=== PATIENT | male | born 1960 | race African-American/Black ===

== ENCOUNTER 2017-03-08 08:56 | Inpatient (IN) | payer OTHER ==
[2017-03-07 12:20] VITALS: BMI 27.7
[~2017-03-08] VITALS: Ht 180.3 cm; Wt 104.1 kg
[2017-03-08] VITALS (18 sets, daily range): BP systolic 105–127; BP diastolic 59–83; PULSE 62–88; RESP 11–26; Ht 180.3 cm; Wt 104.1 kg
--- NOTE | 2017-03-08 10:27 | HPN ---
Date/Time of Note Date/Time of Note DATE: 03/08/17 TIME: 10:26 Interval H&P Admission Note Pt. seen H&P reviewed: No system changes ANAI TOPETE PA-C Mar 08, 2017 10:26
[2017-03-08] MEDS ORDERED: ONDANSETRON 4 MG INJ IV PRN ×2 (10:30→12:00)
[2017-03-08] MEDS ORDERED: morphine 2 MG INJ IV PRN (10:30)
[2017-03-08 10:38] LABS: ADD SCAN DIFF NO
[2017-03-08 10:49] LABS: BASOPHILS % 0.5 % (0.0-2.0); EOSINOPHILS # 0.1 10^3/ul (0.0-0.5); EOSINOPHILS % 1.4 % (0.0-7.0); HEMATOCRIT 42.9 % (42.0-52.0); HEMOGLOBIN 13.9 g/dl (14.0-18.0); LYMPHOCYTES # 1.9 10^3/ul (0.8-2.9); LYMPHOCYTES % 33.3 % (15.0-51.0); MEAN CORPUSCULAR HEMOGLOBIN 29.9 pg (29.0-33.0); MEAN CORPUSCULAR HGB CONC 32.4 g/dl (32.0-37.0); MEAN CORPUSCULAR VOLUME 92.3 fl (82.0-101.0); MEAN PLATELET VOLUME 11.1 fl (7.4-10.4); MONOCYTE # 0.5 10^3/ul (0.3-0.9); MONOCYTES % 8.3 % (0.0-11.0); NEUTROPHIL # 3.2 10^3/ul (1.6-7.5); PLATELET COUNT 232 10^3/UL (140-415); RED BLOOD COUNT 4.65 10^6/ul (4.70-6.10); RED CELL DISTRIBUTION WIDTH 12.5 % (11.5-14.5); WHITE BLOOD COUNT 5.8 10^3/ul (4.8-10.8)
[2017-03-08 10:51] LABS: ALBUMIN 4.8 g/dl (3.3-4.9)
[2017-03-08 10:54] LABS: ALBUMIN/GLOBULIN RATIO 1.45; BILIRUBIN,INDIRECT 0.7 mg/dl (0-1.1); BILIRUBIN,TOTAL 0.7 mg/dl (0.2-1.3); CREATININE 0.71 mg/dl (0.61-1.24); POTASSIUM 4.2 mmol/L (3.5-5.1); TOTAL PROTEIN 8.1 g/dl (6.1-8.1)
[2017-03-08 10:57] LABS: CALCIUM 9.4 mg/dl (8.4-10.2)
[2017-03-08 11:29] LABS: INR 0.96; PROTIME 12.8 Sec (12.2-14.2)
[2017-03-08] MEDS ORDERED: POLYMYXIN/BACITRACIN 1L IRRIG ONE (11:30)
[2017-03-08] MEDS ORDERED: BUPIVACAINE 0.5%/EPI (SDV) 30 ML INJ ONE (11:30)
[2017-03-08] MEDS ORDERED: GELATIN SIZE 100 SPONGE ONE (11:30)
[2017-03-08] MEDS ORDERED: THROMBIN 5000 UNIT VIAL ONE (11:30)
[2017-03-08 11:39] LABS: PARTIAL THROMBOPLASTIN TIME 27.6 Sec (25.0-35.0)
[2017-03-08] MEDS ORDERED: FENTAnyl 50 MCG/ML VIAL IV PRN ×2 (12:00)
[2017-03-08] MEDS ORDERED: MIDAZOLAM 1 MG/ML 2 ML INJ IV PRN (12:00)
[2017-03-08] MEDS ORDERED: LABETALOL HCL 20MG INJ IV PRN (12:00)
[2017-03-08] MEDS ORDERED: hydrALAzine 20 MG INJ IV PRN ×2 (12:00→16:00)
[2017-03-08] MEDS ORDERED: METOCLOPRAMIDE 10 MG INJ IV PRN (12:00)
[2017-03-08] MEDS ORDERED: HYDROmorphONE (0.2 MG/ML) 10ML SYG IV PRN ×2 (12:00)
[2017-03-08] MEDS ORDERED: EPHEDrine SULFATE 50 MG/5 ML SYG IV PRN (12:00)
[2017-03-08] MEDS ORDERED: DIPHENHYDRAMINE 50 MG INJ IV PRN (12:00)
[2017-03-08] MEDS ORDERED: MEPERIDINE 25 MG INJ IV PRN (12:00)
[2017-03-08] MEDS ORDERED: morphine (1 MG/ML) 10ML SYRINGE IV PRN ×2 (12:00)
[2017-03-08] MEDS ORDERED: SUCCINYLCHOLINE CHLORIDE 100 MG/5 ML SYG IV ONE (12:02)
[2017-03-08] MEDS ORDERED: NEOSTIGMINE 3 MG/3 ML SYRINGE ONE ×2 (12:02→13:05)
[2017-03-08] MEDS ORDERED: MEPERIDINE 100 MG INJ ONE (12:02)
[2017-03-08] MEDS ORDERED: PROPOFOL 20 ML ONE (12:02)
[2017-03-08] MEDS ORDERED: GLYCOPYRROLATE 1 MG INJ ONE (12:02)
[2017-03-08] MEDS ORDERED: LIDOCAINE 2% (SDV) 5 ML INJ ONE (12:02)
[2017-03-08] MEDS ORDERED: ROCURONIUM 50 MG INJ ONE ×2 (12:02→14:19)
[2017-03-08] MEDS ORDERED: DEXTROSE 5%-LR 1,000 ML IV ONE (13:00)
[2017-03-08] MEDS ORDERED: CEFAZOLIN 1 GM INJ ONE (13:05)
[2017-03-08] MEDS: CEFAZOLIN 1 GM/50 ML (PMX) 50 ML IVPB SCH ×2 (13:10→21:16)
[2017-03-08] MEDS ORDERED: hydrALAzine 20 MG INJ ONE (13:29)
[2017-03-08] MEDS ORDERED: GEMF600T60 PO (13:36)
[2017-03-08] MEDS ORDERED: TRAM50TA2 PO (13:36)
[2017-03-08] MEDS ORDERED: DICL50TA11 PO (13:36)
[2017-03-08] MEDS ORDERED: METO50TA16 PO (13:36)
--- NOTE | 2017-03-08 15:43 | RADRPT ---
Vent Rate: 62 bpm RR Interval: 0 msec VT Interval: 162 msec QRS Duration: 88 msec QT Interval: 424 msec QTC Interval: 430 msec P-R-T Thompson: 43 - 62 - 62 degrees Normal sinus rhythm Inverted T in aVL Electronically Signed By: Juan C Frias [id number]
--- NOTE | 2017-03-08 15:58 | HP ---
DATE OF ADMISSION: 03/08/2017 HISTORY OF PRESENT ILLNESS: The patient is a 56-year-old gentleman with obesity, hypertension, hype rlipidemia and acute on chronic lower back pain with numbness and weakness of bilateral lower extrem ities. The patient was diagnosed with lumbar microdiscectomy and was evaluated by Dr. Fuentes in crum rgical consultation. Patient was brought to the hospital and underwent L5-S1 laminectomy with micro dissection. Postoperatively, the patient is lethargic but easily arousable. Complains of lower candido k pain and patient will be admitted for further evaluation and management. PAST MEDICAL HISTORY: Positive for hypertension, hyperlipidemia, obesity and chronic low back pain. PAST SURGICAL HISTORY: Patient denies having any surgeries in the past. FAMILY HISTORY: Noncontributory. SOCIAL HISTORY: Patient lives at home. The patient denies any tobacco use, denies any alcohol use, denies any illicit drug use. ALLERGIES: NO KNOWN ALLERGIES. HOME MEDICATIONS: Include: 1. Toprol-XL. 2. Gemfibrozil. 3. Diclofenac sodium. 4. Tramadol. REVIEW OF SYSTEMS: A 12-point review of systems is negative unless what mentioned in the HPI. PHYSICAL ASSESSMENT GENERAL: Well-developed, obese male currently is lethargic, but easily arousable, alert and oriente d x3. VITAL SIGNS: Temperature is 98.7, pulse is 86, blood pressure 127/68, respiratory rate 15, oxygen s aturation 96% on room air. HEENT: Head is atraumatic, normocephalic. Pupils equal, round, reactive to light and accommodation . Oral mucosa is pink and moist. NECK: Supple, no cervical lymphadenopathy, no thyromegaly. CHEST: Lungs clear bilaterally. There is no rhonchi, wheezes, rales noted. CARDIOVASCULAR: Normal S1, S2. No murmurs, gallops, clicks, rubs noted. ABDOMEN: Round, soft, nondistended, nontender. Bowel sounds present. No guarding, rebound tendern ess. EXTREMITIES: There is no edema, clubbing, cyanosis. Pulses equal bilaterally +2. Posterior back s tatus post surgery with a dry, clean and intact dressing. LABORATORY DATA: On admission, CBC: White blood cells 5.8, hemoglobin 15.9, hematocrit 42.9, platel ets 232. Chemistry: Sodium is 142, potassium 4.2, chloride 103, carbon dioxide 25, anion gap 18, B UN is 15, creatinine 0.71, glucose 115, AST is 29, ALT is 45, alkaline phosphatase 53. PT is 12.8, INR is 0.968, PTT is 27.8. ASSESSMENT AND PLAN: 1. Status post L5-S1 laminectomy with microdissection for lumbar rupture. Continue patient on cefa zolin and IV fluids. Continue [place] and morphine p.r.n. for pain and Zofran p.r.n. for nausea. Inc entive spirometer q.1 hour while the patient is awake. 2. Hypertension. Continue to monitor blood pressure. Continue hydralazine p.r.n. for systolic blo od pressure above 170. Resume patient's home medication Toprol when patient is able to take p.o. 3. Hyperlipidemia. Continue gemfibrozil. 4. Obesity. 5. Continue sequential compression device for deep venous thrombosis prophylaxis. Further recommen dations based on clinical course. Continue to follow up surgical recommendations. Further recommen dations based on clinical course. Plan of care discussed with Dr. Jean Baptiste. Dictated By: AVANI STARR VIDEO TAPE DUPLICATOR for BESSY JEAN BAPTISTE MD SR/NTS Conf#: [id number] DID#: [id number]
--- NOTE | 2017-03-08 16:16 | RADRPT ---
PROCEDURE: Intraoperative fluoroscopy. CLINICAL INDICATION: Intraoperative fluoroscopy during L5-S1 microdiskectomy. TECHNIQUE: 2 spot intraoperative fluoroscopic images were provided. The images were reviewed on a high-resolution PACS workstation. COMPARISON: None available FINDINGS: Multiple spot intraoperative fluoroscopic views were provided during L5-S1 microdiskectomy. The kedar ges demonstrate metallic probe at the L5-S1 level. The total fluoroscopy time was 3.4 seconds. IMPRESSION: 1. Multiple spot intraoperative fluoroscopic views during L5-S1 microdiskectomy were provided. 2. Please see operative report of the same day for further information. RPTAT: HGAS .Frank Nath MD, MD Date Time Electronically viewed and signed by .Frank Nath MD, on 03/08/2017 16:16 .S/
--- NOTE | 2017-03-08 16:17 | RADRPT ---
PROCEDURE: XR Chest. CLINICAL INDICATION: Preop evaluation. TECHNIQUE: AP view of the chest was obtained. COMPARISON: None available FINDINGS: The cardiomediastinal silhouette is within normal limits. The lungs are clear. No signs of pleural f luid or pneumothorax are seen. The osseous structures and soft tissues are unremarkable. IMPRESSION: 1. No evidence for active cardiopulmonary disease. RPTAT: HGAS .Frank Nath MD, MD Date Time Electronically viewed and signed by .Frank Nath MD, on 03/08/2017 16:16 .S/
[2017-03-08] MEDS: GEMFIBROZIL 600 MG TAB PO SCH (18:37)
[2017-03-08] MEDS: HYDROCODONE/APAP (10/325) TAB PO PRN (18:43)
[2017-03-08 21:11] LABS: ADD UMIC NO; URINE BILIRUBIN (Dip) NEGATIVE (NEGATIVE); URINE BLOOD (Dip) NEGATIVE (NEGATIVE); URINE COLOR LT. YELLOW (YELLOW); URINE GLUCOSE (Dip) NEGATIVE (NEGATIVE); URINE KETONES (Dip) NEGATIVE (NEGATIVE); URINE LEUKOCYTE ESTERASE (Dip) NEGATIVE (NEGATIVE); URINE NITRITE (Dip) NEGATIVE (NEGATIVE); URINE TOTAL PROTEIN (Dip) NEGATIVE (NEGATIVE); URINE UROBILINOGEN (Dip) 0.2 E.U./dL (0.1-1.0)
[2017-03-09] MEDS: HYDROCODONE/APAP (10/325) TAB PO PRN (02:50)
[2017-03-09 02:53] VITALS: BP 125/68; PULSE 78; RESP 18
[2017-03-09] MEDS: CEFAZOLIN 1 GM/50 ML (PMX) 50 ML IVPB SCH ×2 (05:23→15:01)
[2017-03-09 05:28] LABS: ADD SCAN DIFF NO; BASOPHILS % 0.3 % (0.0-2.0); EOSINOPHILS % 0.3 % (0.0-7.0); HEMATOCRIT 38.9 % (42.0-52.0); HEMOGLOBIN 12.7 g/dl (14.0-18.0); LYMPHOCYTES # 1.5 10^3/ul (0.8-2.9); LYMPHOCYTES % 13.4 % (15.0-51.0); MEAN CORPUSCULAR HEMOGLOBIN 30.3 pg (29.0-33.0); MEAN CORPUSCULAR HGB CONC 32.6 g/dl (32.0-37.0); MEAN CORPUSCULAR VOLUME 92.8 fl (82.0-101.0); MONOCYTES % 9.4 % (0.0-11.0); NEUTROPHIL # 8.4 10^3/ul (1.6-7.5); NEUTROPHILS % 76.2 % (39.0-77.0); PLATELET COUNT 228 10^3/UL (140-415); RED BLOOD COUNT 4.19 10^6/ul (4.70-6.10); RED CELL DISTRIBUTION WIDTH 12.5 % (11.5-14.5)
[2017-03-09 05:46] VITALS: BP 122/70; PULSE 78; RESP 18
[2017-03-09 05:54] LABS: CALCIUM 8.9 mg/dl (8.4-10.2); CREATININE 0.86 mg/dl (0.61-1.24); POTASSIUM 4.2 mmol/L (3.5-5.1)
[2017-03-09 08:11] VITALS: BP 128/65; RESP 16
[2017-03-09] MEDS: METOPROLOL (XL) 50 MG TAB PO SCH (09:30)
[2017-03-09] MEDS: GEMFIBROZIL 600 MG TAB PO SCH ×2 (10:24→17:51)
--- NOTE | 2017-03-09 11:11 | CONS ---
Date/Time of Note Date/Time of Note DATE: 03/09/17 TIME: 11:09 Assessment/Plan Assessment/Plan Additional Assessment/Plan seen/examined awake/alert/follows/moves all. co severe low back pain without radiation to feet sp l5-s1 microdiskectomy doing ok another day of pain management change morphine to dilaudid may go home jody if pain better Consultation Date/Type/Reason Admit Date/Time Mar 08, 2017 at 08:56 Initial Consult Date Exam/Review of Systems Vital Signs Vitals Vital Signs Date Time Temp Pulse Resp B/P Pulse Ox O2 Delivery O2 Flow Rate FiO2 03/09/17 08:11 98.5 73 16 128/65 95 03/09/17 05:46 Room Air 03/08/17 16:00 2.0 Intake and Output 03/08/17 03/08/17 03/09/17 15:00 23:00 07:00 Intake Total 450 ml 50 ml 900 ml Output Total 100 ml 1500 ml Balance 350 ml 50 ml -600 ml Results Result Diagram: 03/09/17 0452 03/09/17 0452 Results 24 hrs Laboratory Tests Test 03/09/17 04:52 White Blood Count 11.0 #H Red Blood Count 4.19 L Hemoglobin 12.7 L Hematocrit 38.9 L Mean Corpuscular Volume 92.8 Mean Corpuscular Hemoglobin 30.3 Mean Corpuscular Hemoglobin Concent 32.6 Red Cell Distribution Width 12.5 Platelet Count 228 Mean Platelet Volume 11.0 H Neutrophils % 76.2 Lymphocytes % 13.4 L Monocytes % 9.4 Eosinophils % 0.3 Basophils % 0.3 Nucleated Red Blood Cells % 0.0 Neutrophils # 8.4 H Lymphocytes # 1.5 Monocytes # 1.0 H Eosinophils # 0.0 Basophils # 0.0 Nucleated Red Blood Cells # 0.0 Sodium Level 138 Potassium Level 4.2 Chloride Level 105 Carbon Dioxide Level 24 Anion Gap 13 Blood Urea Nitrogen 14 Creatinine 0.86 Glucose Level 136 Calcium Level 8.9 Medications Medications Current Medications Cefazolin Sodium (Ancef 1 Gm/50 ml (Pmx)) 50 ml @ 100 mls/hr Q8 IVPB Last administered on 03/09/17t 05:23; Admin Dose 100 MLS/HR; Start 03/08/17 at 14:00; Stop 03/09/17 at 14:00 Morphine Sulfate (morphine) 2 mg Q3H PRN IV severe pain Last administered on 08:12; Admin Dose 2 MG; Start 03/08/17 at 10:30 Ondansetron HCl (Zofran Inj) 4 mg Q6H PRN IV NAUSEA AND/OR VOMITING; Start 03/08 at 10:30 Acetaminophen/ Hydrocodone Bitart ([place] (10)) 1 tab Q4H PRN PO PAIN Last administered on 03/09/17 02:50; Admin Dose 1 TAB; Start 03/08/17 at 10:30 Clonidine (Catapres) 0.1 mg Q4H PRN PO sbp>160; Start 03/08/17 at 13:00 Metoprolol Succinate (Toprol Xl) 50 mg DAILY PO Last administered on 03/09/17 09:30; Admin Dose 50 MG; Start 03/09/17 at 09:00 Hydralazine HCl (Apresoline) 10 mg Q4H PRN IV SBP>170; Start 03/08/17 at 16:00 ANAI TOPETE PA-C Mar 09, 2017 11:11
[2017-03-09] MEDS: HYDROmorphONE 1 MG/ML SYG IV PRN ×4 (11:39→23:37)
--- NOTE | 2017-03-09 13:45 | PN ---
Date/Time of Note Date/Time of Note DATE: 03/09/17 TIME: 13:44 Assessment/Plan VTE Prophylaxis VTE Prophylaxis Intervention: other Lines/Catheters IV Catheter Type (from Nrsg): Saline Lock Urinary Cath still in place: Yes Assessment/Plan Assessment/Plan 1. Status post L5-S1 laminectomy with microdissection for lumbar rupture. Continue patient on cefazolin and IV fluids. Continue [place] and morphine p.r.n. for pain and Zofran p.r.n. for nausea. Incentive spirometer q.1 hour while the patient is awake. 2. Hypertension. Continue to monitor blood pressure. Continue hydralazine p.r.n. for systolic blood pressure above 170. Resume patient's home medication Toprol when patient is able to take p.o. 3. Hyperlipidemia. Continue gemfibrozil. 4. Obesity. 5. Continue sequential compression device for deep venous thrombosis prophylaxis. Further recommendations based on clinical course. Continue to follow up surgical recommendations. Further recommendations based on clinical course. Plan of care discussed with Dr. Flood. Subjective 24 Hr Interval Summary Eyes: no complaints ENT: no complaints Respiratory: no complaints Cardiovascular: no complaints Gastrointestinal: no complaints Genitourinary: no complaints Musculoskeletal: back pain Skin: no complaints Neurologic: no complaints Endocrine: no complaints Lymphatic: no complaints Psychological: no complaints Immunologic: no complaints Exam/Review of Systems Vital Signs Vitals Vital Signs Date Time Temp Pulse Resp B/P Pulse Ox O2 Delivery O2 Flow Rate FiO2 03/09/17 08:11 98.5 73 16 128/65 95 03/09/17 05:46 Room Air 03/08/17 16:00 2.0 Intake and Output 03/08/17 03/08/17 03/09/17 15:00 23:00 07:00 Intake Total 450 ml 50 ml 900 ml Output Total 100 ml 1500 ml Balance 350 ml 50 ml -600 ml Exam Constitutional: alert, oriented, well developed Psych: nl mood/affect Head: atraumatic Eyes: EOMI, nl sclera ENMT: nl external ears & nose Neck: non-tender Respiratory: clear to auscultation Cardiovascular: nl pulses Gastrointestinal: non-tender, soft Musculoskeletal: nl extremities to inspection Extremities: normal pulses Neurological: nl mental status, nl speech, other Skin: other Lymph: nontender Results Result Diagram: 03/09/17 0452 03/09/17 0452 Results 24 hrs Laboratory Tests Test 03/09/17 04:52 White Blood Count 11.0 #H Red Blood Count 4.19 L Hemoglobin 12.7 L Hematocrit 38.9 L Mean Corpuscular Volume 92.8 Mean Corpuscular Hemoglobin 30.3 Mean Corpuscular Hemoglobin Concent 32.6 Red Cell Distribution Width 12.5 Platelet Count 228 Mean Platelet Volume 11.0 H Neutrophils % 76.2 Lymphocytes % 13.4 L Monocytes % 9.4 Eosinophils % 0.3 Basophils % 0.3 Nucleated Red Blood Cells % 0.0 Neutrophils # 8.4 H Lymphocytes # 1.5 Monocytes # 1.0 H Eosinophils # 0.0 Basophils # 0.0 Nucleated Red Blood Cells # 0.0 Sodium Level 138 Potassium Level 4.2 Chloride Level 105 Carbon Dioxide Level 24 Anion Gap 13 Blood Urea Nitrogen 14 Creatinine 0.86 Glucose Level 136 Calcium Level 8.9 Medications Medications Current Medications Cefazolin Sodium (Ancef 1 Gm/50 ml (Pmx)) 50 ml @ 100 mls/hr Q8 IVPB Last administered on 03/09/17 05:23; Admin Dose 100 MLS/HR; Start 03/08/17 at 14:00; Stop 03/09/17 at 14:00 Ondansetron HCl (Zofran Inj) 4 mg Q6H PRN IV NAUSEA AND/OR VOMITING; Start 03/08 at 10:30 Acetaminophen/ Hydrocodone Bitart ([place] (10/325)) 1 tab Q4H PRN PO PAIN Last administered on 03/09/17 02:50; Admin Dose 1 TAB; Start 03/08/17 at 10:30 Clonidine (Catapres) 0.1 mg Q4H PRN PO sbp>160; Start 03/08/17 at 13:00 Metoprolol Succinate (Toprol Xl) 50 mg DAILY PO Last administered on 03/09/17 09:30; Admin Dose 50 MG; Start 03/09/17 at 09:00 Hydralazine HCl (Apresoline) 10 mg Q4H PRN IV SBP>170; Start 03/08/17 at 16:00 Hydromorphone HCl (Dilaudid) 1 mg Q4H PRN IV PAIN Last administered on 11:39; Admin Dose 1 MG; Start 03/09/17 at 11:30 JESS MULLER Mar 09, 2017 13:45
[2017-03-09 19:20] VITALS: BP 135/75; PULSE 80; RESP 18
[2017-03-10] MEDS: HYDROmorphONE 1 MG/ML SYG IV PRN ×6 (04:06→23:54)
[2017-03-10 05:31] LABS: ADD SCAN DIFF NO
[2017-03-10 05:34] LABS: BASOPHILS % 0.3 % (0.0-2.0); EOSINOPHILS # 0.1 10^3/ul (0.0-0.5); EOSINOPHILS % 0.5 % (0.0-7.0); HEMATOCRIT 41.2 % (42.0-52.0); HEMOGLOBIN 13.6 g/dl (14.0-18.0); LYMPHOCYTES # 1.9 10^3/ul (0.8-2.9); LYMPHOCYTES % 16.3 % (15.0-51.0); MEAN CORPUSCULAR HEMOGLOBIN 30.6 pg (29.0-33.0); MEAN CORPUSCULAR VOLUME 92.6 fl (82.0-101.0); MEAN PLATELET VOLUME 10.6 fl (7.4-10.4); MONOCYTE # 1.4 10^3/ul (0.3-0.9); MONOCYTES % 12.1 % (0.0-11.0); NEUTROPHIL # 8.4 10^3/ul (1.6-7.5); NEUTROPHILS % 70.3 % (39.0-77.0); PLATELET COUNT 215 10^3/UL (140-415); RED BLOOD COUNT 4.45 10^6/ul (4.70-6.10); RED CELL DISTRIBUTION WIDTH 12.4 % (11.5-14.5); WHITE BLOOD COUNT 11.9 10^3/ul (4.8-10.8)
[2017-03-10 05:50] LABS: POTASSIUM 3.8 mmol/L (3.5-5.1)
[2017-03-10 05:52] LABS: CREATININE 0.73 mg/dl (0.61-1.24)
[2017-03-10 08:06] VITALS: BP 144/64; RESP 20
[2017-03-10] MEDS: GEMFIBROZIL 600 MG TAB PO SCH ×2 (08:28→18:01)
[2017-03-10] MEDS: METOPROLOL (XL) 50 MG TAB PO SCH (08:28)
--- NOTE | 2017-03-10 11:54 | CONS ---
Date/Time of Note Date/Time of Note DATE: 03/10/17 TIME: 11:52 Assessment/Plan Assessment/Plan Additional Assessment/Plan seen/examined awake/alert/follows/moves all co pain level 10/10 wound looks good, no bleeding pt advised to stay off the incision site may go home when pain better controlled, within 24 hrs Consultation Date/Type/Reason Admit Date/Time Mar 08, 2017 at 08:56 Exam/Review of Systems Vital Signs Vitals Vital Signs Date Time Temp Pulse Resp B/P Pulse Ox O2 Delivery O2 Flow Rate FiO2 03/10/17 08:06 97.9 91 20 144/64 98 03/09/17 19:20 Room Air 03/08/17 16:00 2.0 Intake and Output 03/09/17 03/09/17 03/10/17 15:00 23:00 07:00 Intake Total 1590 ml 1600 ml Output Total 1600 ml 1500 ml Balance -10 ml 100 ml Results Result Diagram: 03/10/17 0500 03/10/17 0500 Results 24 hrs Laboratory Tests Test 03/10/17 05:00 White Blood Count 11.9 H Red Blood Count 4.45 L Hemoglobin 13.6 L Hematocrit 41.2 L Mean Corpuscular Volume 92.6 Mean Corpuscular Hemoglobin 30.6 Mean Corpuscular Hemoglobin Concent 33.0 Red Cell Distribution Width 12.4 Platelet Count 215 Mean Platelet Volume 10.6 H Neutrophils % 70.3 Lymphocytes % 16.3 Monocytes % 12.1 H Eosinophils % 0.5 Basophils % 0.3 Nucleated Red Blood Cells % 0.0 Neutrophils # 8.4 H Lymphocytes # 1.9 Monocytes # 1.4 H Eosinophils # 0.1 Basophils # 0.0 Nucleated Red Blood Cells # 0.0 Sodium Level 138 Potassium Level 3.8 Chloride Level 100 Carbon Dioxide Level 25 Anion Gap 17 H Blood Urea Nitrogen 11 Creatinine 0.73 Glucose Level 178 Calcium Level 9.0 Medications Medications Current Medications Ondansetron HCl (Zofran Inj) 4 mg Q6H PRN IV NAUSEA AND/OR VOMITING; Start 03/08 at 10:30 Acetaminophen/ Hydrocodone Bitart ([place] (10/325)) 1 tab Q4H PRN PO PAIN Last administered on 03/09/17t 02:50; Admin Dose 1 TAB; Start 03/08/17 at 10:30 Clonidine (Catapres) 0.1 mg Q4H PRN PO sbp>160; Start 03/08/17 at 13:00 Metoprolol Succinate (Toprol Xl) 50 mg DAILY PO Last administered on 03/10/17 08:28; Admin Dose 50 MG; Start 03/09/17 at 09:00 Hydralazine HCl (Apresoline) 10 mg Q4H PRN IV SBP>170; Start 03/08/17 at 16:00 Hydromorphone HCl (Dilaudid) 1 mg Q4H PRN IV PAIN Last administered on 08:26; Admin Dose 1 MG; Start 03/09/17 at 11:30 ANAI TOPETE PA-C Mar 10, 2017 11:54
--- NOTE | 2017-03-10 14:14 | PN ---
Date/Time of Note Date/Time of Note DATE: 03/10/17 TIME: 14:13 Assessment/Plan VTE Prophylaxis VTE Prophylaxis Intervention: other Lines/Catheters IV Catheter Type (from Nrsg): [place] Urinary Cath still in place: No Assessment/Plan Assessment/Plan 1. Status post L5-S1 laminectomy with microdissection for lumbar rupture. Continue patient on cefazolin and IV fluids. Continue [place] and morphine p.r.n. for pain and Zofran p.r.n. for nausea. Incentive spirometer q.1 hour while the patient is awake. 2. Hypertension. Continue to monitor blood pressure. Continue hydralazine p.r.n. for systolic blood pressure above 170. Resume patient's home medication Toprol when patient is able to take p.o. 3. Hyperlipidemia. Continue gemfibrozil. 4. Obesity. 5. Continue sequential compression device for deep venous thrombosis prophylaxis. Further recommendations based on clinical course. Continue to follow up surgical recommendations. Further recommendations based on clinical course. Plan of care discussed with Dr. Flood. Subjective 24 Hr Interval Summary Eyes: no complaints ENT: no complaints Respiratory: no complaints Cardiovascular: no complaints Gastrointestinal: constipation Genitourinary: no complaints Musculoskeletal: back pain Skin: no complaints Neurologic: no complaints Endocrine: no complaints Lymphatic: no complaints Psychological: nl mood/affect Exam/Review of Systems Vital Signs Vitals Vital Signs Date Time Temp Pulse Resp B/P Pulse Ox O2 Delivery O2 Flow Rate FiO2 03/10/17 08:06 97.9 91 20 144/64 98 03/09/17 19:20 Room Air 03/08/17 16:00 2.0 Intake and Output 03/09/17 03/09/17 03/10/17 15:00 23:00 07:00 Intake Total 1590 ml 1600 ml Output Total 1600 ml 1500 ml Balance -10 ml 100 ml Exam Constitutional: alert, oriented, well developed Psych: nl mood/affect Head: atraumatic Eyes: EOMI, PERRL, nl sclera ENMT: nl external ears & nose Neck: non-tender Respiratory: clear to auscultation Cardiovascular: nl pulses Gastrointestinal: non-tender, soft Musculoskeletal: nl extremities to inspection Extremities: normal pulses Neurological: nl mental status, nl speech Skin: nl turgor Lymph: nontender Results Result Diagram: 03/10/17 0500 03/10/17 0500 Results 24 hrs Laboratory Tests Test 03/10/17 05:00 White Blood Count 11.9 H Red Blood Count 4.45 L Hemoglobin 13.6 L Hematocrit 41.2 L Mean Corpuscular Volume 92.6 Mean Corpuscular Hemoglobin 30.6 Mean Corpuscular Hemoglobin Concent 33.0 Red Cell Distribution Width 12.4 Platelet Count 215 Mean Platelet Volume 10.6 H Neutrophils % 70.3 Lymphocytes % 16.3 Monocytes % 12.1 H Eosinophils % 0.5 Basophils % 0.3 Nucleated Red Blood Cells % 0.0 Neutrophils # 8.4 H Lymphocytes # 1.9 Monocytes # 1.4 H Eosinophils # 0.1 Basophils # 0.0 Nucleated Red Blood Cells # 0.0 Sodium Level 138 Potassium Level 3.8 Chloride Level 100 Carbon Dioxide Level 25 Anion Gap 17 H Blood Urea Nitrogen 11 Creatinine 0.73 Glucose Level 178 Calcium Level 9.0 Medications Medications Current Medications Ondansetron HCl (Zofran Inj) 4 mg Q6H PRN IV NAUSEA AND/OR VOMITING; Start 03/08 at 10:30 Acetaminophen/ Hydrocodone Bitart ([place] (10/325)) 1 tab Q4H PRN PO PAIN Last administered on 03/09/17 02:50; Admin Dose 1 TAB; Start 03/08/17 at 10:30 Clonidine (Catapres) 0.1 mg Q4H PRN PO sbp>160; Start 03/08/17 at 13:00 Metoprolol Succinate (Toprol Xl) 50 mg DAILY PO Last administered on 03/10/17 08:28; Admin Dose 50 MG; Start 03/09/17 at 09:00 Hydralazine HCl (Apresoline) 10 mg Q4H PRN IV SBP>170; Start 03/08/17 at 16:00 Hydromorphone HCl (Dilaudid) 1 mg Q3H PRN IV PAIN Last administered on 12:21; Admin Dose 1 MG; Start 03/10/17 at 12:30 JESS MULLER Mar 10, 2017 14:14
[2017-03-10] MEDS ORDERED: HYDROmorphONE 1 MG/ML SYG IV PRN (14:30)
[2017-03-10] MEDS: BISACODYL (EC) 5 MG TAB PO PRN ×2 (14:36→15:54)
[2017-03-10] MEDS: HYDROCODONE/APAP (10/325) TAB PO PRN ×3 (14:37→22:15)
[2017-03-10 19:46] VITALS: BP 133/75; RESP 18
[2017-03-10] MEDS: DOCUSATE SODIUM 100 MG CAP PO SCH (20:14)
[2017-03-11] MEDS: HYDROCODONE/APAP (10/325) TAB PO PRN ×3 (02:10→14:49)
[2017-03-11 04:54] LABS: ADD SCAN DIFF NO
[2017-03-11 04:57] LABS: BASOPHILS % 0.3 % (0.0-2.0); EOSINOPHILS # 0.1 10^3/ul (0.0-0.5); EOSINOPHILS % 1.2 % (0.0-7.0); HEMATOCRIT 41.3 % (42.0-52.0); HEMOGLOBIN 13.4 g/dl (14.0-18.0); LYMPHOCYTES # 1.8 10^3/ul (0.8-2.9); LYMPHOCYTES % 18.2 % (15.0-51.0); MEAN CORPUSCULAR HEMOGLOBIN 30.3 pg (29.0-33.0); MEAN CORPUSCULAR HGB CONC 32.4 g/dl (32.0-37.0); MEAN CORPUSCULAR VOLUME 93.4 fl (82.0-101.0); MEAN PLATELET VOLUME 10.7 fl (7.4-10.4); MONOCYTE # 1.1 10^3/ul (0.3-0.9); MONOCYTES % 11.4 % (0.0-11.0); NEUTROPHIL # 6.9 10^3/ul (1.6-7.5); NEUTROPHILS % 68.5 % (39.0-77.0); PLATELET COUNT 208 10^3/UL (140-415); RED BLOOD COUNT 4.42 10^6/ul (4.70-6.10); RED CELL DISTRIBUTION WIDTH 12.1 % (11.5-14.5)
[2017-03-11 05:26] LABS: CREATININE 0.73 mg/dl (0.61-1.24)
[2017-03-11 05:27] LABS: CALCIUM 9.2 mg/dl (8.4-10.2)
[2017-03-11 08:18] VITALS: BP 139/83; RESP 18
[2017-03-11] MEDS: DOCUSATE SODIUM 100 MG CAP PO SCH ×2 (09:08→12:30)
[2017-03-11] MEDS: GEMFIBROZIL 600 MG TAB PO SCH ×2 (09:08→18:16)
[2017-03-11] MEDS: METOPROLOL (XL) 50 MG TAB PO SCH (09:09)
--- NOTE | 2017-03-11 12:13 | PREOPHP ---
DATE OF ADMISSION: 03/08/2017 HISTORY OF PRESENT ILLNESS: The patient is a 56-year-old male who was originally seen in the office for evaluation of low back pain with pain going to both of his thighs. He denied any tingling asso ciated with his pain and no bladder or bowel dysfunction. The patient was diagnosed with a right-si ded lumbar 5- sacral 1 disk rupture. Conservative management was offered to the patient in the form of pain management and physical therapy which the patient has failed. The patient also received ep idural injections into the lumbar spine x4 without much relief. As his pain was getting worse and p eve is having difficulty with his ambulation, he wanted something more definitive to be done. Zepeda rgical intervention was entertained and the patient has agreed and wanted to go through with surgica l intervention. PAST MEDICAL HISTORY: History of hypertension. PAST SURGICAL HISTORY: Unremarkable. SOCIAL HISTORY: Denies use of drugs, alcohol, tobacco. ALLERGIES: NONE. MEDICATIONS: Taken at home per chart. FAMILY HISTORY: Unremarkable. REVIEW OF SYSTEMS: Additional 10-point review of systems conducted. Pertinent positive in HPI, oth erwise negative. PHYSICAL EXAMINATION: GENERAL: The patient is awake, alert, and oriented. Follows commands appropriately. HEENT: Head is atraumatic, normocephalic. Eyes: Sclerae, clear nonicteric. EOMs intact. Pupils equal, reactive. No cyanosis. Mouth, no lesions, no bleeding, no discharge. NECK: Supple, no thyromegaly, no JVD, no accessory muscle usage. PULMONARY: No dyspnea and tachypnea. HEART: No JVD. No pedal edema. ABDOMEN: Soft without guarding. PERIPHERAL VASCULAR: No edema. NEUROLOGIC: GCS 15. Cranial nerves I through XII intact. No gross abnormality is noted. Upper ex tremity examination is unremarkable. He has equal strength in both of his upper extremities. Sensa tion is intact. Strength is equal. LOWER EXTREMITIES: He has good strength in both his lower extremities in all muscle groups. He mov es both sides equally. Upon flexion and extension of the lumbar spine, he developed low back pain. He has a slightly positive leg raise on the right side. Sensations intact throughout. MRI dated 01/26/2017 shows right sided lumbar 5- sacral 1 disk rupture. RECOMMENDATION: At this point, the patient has failed conservative management and has failed outpat ient therapy. His pain is getting worse. Condition is getting worse. He is developing difficulty with ambulation. He wants something more definitive to be done. Surgical option was discussed wi th the patient. He wants to go ahead and proceed. Unfortunately, at this point, the only option le ft is for surgical intervention in the form of right-sided lumbar 5- sacral 1 laminotomy with forami notomy with possible microdiskectomy. The procedure was described to the patient in great detail. Complications were explained, including permanent nerve damage, infection, bleeding complications wi th anesthesia including myocardial infarction, stroke and even . The patient has agreed and el ected to proceed with intervention. Preop was performed. The patient has been cleared by primary maricarmen nuno, will be admitted to the hospital thereafter for further care and management. Dictated By: ANAI CASTELLON for ALISON ARIAS/KINGSLEY Conf#: [id number] DID#: [id number]
[2017-03-11] MEDS ORDERED: BISACODYL 10 MG SUPP PR PRN (15:00)
--- NOTE | 2017-03-11 17:16 | PDOCDIS ---
Discharge Instructions CONDITION Patient Condition: Stable HOME CARE INSTRUCTIONS: Diet Instructions: RegularSpecial Diet: FULL LIQUID AND ADVANCE TOLERATED ACTIVITY: Activity Restrictions: Slowly Increase Activity Rest between Activity Avoid heavy lifting Do not operate Machinery Do not operate Power Tool Avoid Heavy Housework Bathing Restrictions: ShowerActivity Restrictions Comment: keep back area clean/dry/intact FOLLOW UP/APPOINTMENTS Appointments FU with Primary MD X 1 week FU with neurosurgery as recommended. Call 911 or got to the nearest hospital if symptoms get worse. Patient verbalized understanding of discharge instructions. Dw Dr Puentes/staff JESS MULLER Mar 11, 2017 17:16
[2017-03-11] MEDS ORDERED: PANT20TA2 PO (17:17)
[2017-03-11] MEDS ORDERED: DOCU-216 PO (17:17)
--- NOTE | 2017-03-11 17:49 | DS ---
Date/Time of Note Date/Time of Note DATE: 03/11/17 TIME: 17:48 Discharge Summary Admission/Discharge Info Admit Date/Time Mar 08, 2017 at 08:56 Discharge Date/Time Home Meds Active Scripts Pantoprazole* (Protonix*) 20 Mg Tablet.dr, 20 MG PO DAILY, #30 TAB Prov:JESS MULLER 03/11/17 Docusate Sodium (Dok) 100 Mg Capsule, 100 MG PO TID for 30 Days, CAP Prov:JESS MULLER 03/11/17 Reported Medications Diclofenac Sodium* (Diclofenac Sodium*) 50 Mg Tablet.dr, 50 MG PO BID Y for PAIN , #60 TAB 03/08/17 Gemfibrozil* (Gemfibrozil*) 600 Mg Tablet, 600 MG PO BID, TAB 03/08/17 Tramadol HCl (Tramadol HCl) 50 Mg Tablet, 50 MG PO Q6H Y for PAIN, #120 TAB 03/08/17 Metoprolol Succinate* (Toprol XL*) 50 Mg Tab.er.24h, 50 MG PO DAILY, #30 TAB 03/08/17 Pending Labs Laboratory Tests Test 03/11/17 04:39 White Blood Count 10.010^3/ul (4.8-10.8) Red Blood Count 4.4210^6/ul (4.70-6.10) Hemoglobin 13.4g/dl (14.0-18.0) Hematocrit 41.3% (42.0-52.0) Mean Corpuscular Volume 93.4fl (82.0-101.0) Mean Corpuscular Hemoglobin 30.3pg (29.0-33.0) Mean Corpuscular Hemoglobin Concent 32.4g/dl (32.0-37.0) Red Cell Distribution Width 12.1% (11.5-14.5) Platelet Count 88159^3/UL (140-415) Mean Platelet Volume 10.7fl (7.4-10.4) Neutrophils % 68.5% (39.0-77.0) Lymphocytes % 18.2% (15.0-51.0) Monocytes % 11.4% (0.0-11.0) Eosinophils % 1.2% (0.0-7.0) Basophils % 0.3% (0.0-2.0) Nucleated Red Blood Cells % 0.0/100WBC (0.0-0.0) Neutrophils # 6.910^3/ul (1.6-7.5) Lymphocytes # 1.810^3/ul (0.8-2.9) Monocytes # 1.110^3/ul (0.3-0.9) Eosinophils # 0.110^3/ul (0.0-0.5) Basophils # 0.010^3/ul (0.0-0.1) Nucleated Red Blood Cells # 0.010^3/ul (0.0-0.0) Sodium Level 138mmol/L (135-144) Potassium Level 4.0mmol/L (3.5-5.1) Chloride Level 100mmol/L (97-110) Carbon Dioxide Level 25mmol/L (21-31) Anion Gap 17 (8-16) Blood Urea Nitrogen 13mg/dl (7-20) Creatinine 0.73mg/dl (0.61-1.24) Glucose Level 153mg/dl (70-220) Calcium Level 9.2mg/dl (8.4-10.2) JESS MULLER Mar 11, 2017 17:49
--- NOTE | 2017-03-11 19:10 | OPR ---
DATE OF OPERATION: 03/08/2017 PREOPERATIVE DIAGNOSIS: Right-sided L5-S1 lumbar disk rupture with neural foraminal stenosis and maurice mbar radiculopathy. POSTOPERATIVE IAGNOSIS: Right-sided L5-S1 lumbar disk rupture with neural foraminal stenosis and maurice mbar radiculopathy. PROCEDURES: 1. Right L5 medial facetectomy, laminotomy and decompressive foraminotomy with decompression of rig ht L5 neural foramen, CPT 78394. 2. Right S1 laminotomy, foraminotomy, medial facetectomy with decompression of right S1 neural fora men, CPT 31457. 3. Right-sided L5-S1 microdiskectomy with removal of the free fragment and herniated fragment of di sk, CPT 58174. SURGEON: Alison Fuentes MD SANDER SETTER: CANDE Medina COMPLICATIONS OF THE OPERATION: None. ANESTHESIA: General endotracheal. ESTIMATED BLOOD LOSS: Less than 100 COUNTS: Needle counts, sponge counts were correct. SPECIMENS: Multiple fragments of the disk were sent to pathology. INDICATIONS FOR THE OPERATION: Please refer to my consultation. The patient is an approximately 56 -year-old right-handed male who has been complaining of low back pain ____, radiation of pain to rig ht lower extremity to the point that he is unable to do his normal daily activity. Does not have an y bowel or bladder dysfunction. He says the pain is constant, shooting down the right leg to the po int that he is unable to do his normal daily activities. To proceed thus with right-sided laminotom y, foraminotomy, medial facetectomy, microdiskectomy. Risks of operation including anesthesia, infe ction, permanent ____ and were explained. The patient agreed to proceed with the operation, h as signed the consent. PROCEDURE IN DETAIL: The patient was placed in supine position. Adequate general endotracheal anes thesia was obtained. The lower lumbar spine was shaved, prepped and draped in normal sterile fashio n, was infiltrated with lidocaine with epinephrine. Opening was opened with a knife in the midline. Retraction was done on right side midline all the way to the L5-S1 lamina, inferior aspect of the L5 lamina. Superior aspect of S1 lamina was resected all the way to the neural foramen. The pedicl e of L5, pedicle of S1 were identified on the right side. Under operative ____ magnification, the n erve root of ____ S1 was retracted medially until I was able to decompress the disk completely and r emove the disk first with a 15 blade to open the annulus and then following that remove the nucleus portion, which was very soft and necrotic. The neural foramens were completely opened with medial facetectomy and foraminotomy, and the neural foramen was distally followed deep into the neural foramen. The area was irrigated with bacitracin and saline solution. The nerve root signals appeared to be good on spinal monitoring. The closure of wound at this time was started with stopping all the bleeders with bipolar cautery. Closure of w ound with #1 Vicryl for the lumbodorsal fascia, 2-0 and 3-0 Vicryl for subcutaneous tissue and dermi s with Steri-Strip for the skin. The patient tolerated the procedure well, was taken to postanesthe diana recovery in stable condition. Dictated By: ALISON AGUILERA/KINGSLEY Conf#: [id number] DID#: [id number]
== END 2017-03-11 18:50 | disposition home or self-care (01) | DRG 520 ==
LOC: REC 08:56 → MS1 15:50
PROVIDERS: ADMIT Internal Medicine; ATTEND Internal Medicine
PROC: 0SB40ZZ Excision of Lumbosacral Disc, Open Approach (ICD-10-PCS; 2017-03-08)
PROC: 01NB0ZZ Release Lumbar Nerve, Open Approach (ICD-10-PCS; principal; 2017-03-08 12:00)
DX: M51.16 Intervertebral disc disorders with radiculopathy, lumbar region (principal); I10 Essential (primary) hypertension; M51.17 Intervertebral disc disorders with radiculopathy, lumbosacral region; M48.07 Spinal stenosis, lumbosacral region; E78.5 Hyperlipidemia, unspecified; E66.9 Obesity, unspecified; Z68.32 Body mass index [BMI] 32.0-32.9, adult
CPT/HCPCS: 71010; 72100; 80048; 80053; 81003; 85025; 85610; 85730; 86850; 86900; 86901; 88304; 93005; 97116; 97162; 97530; J0330; J0360; J0690; J1170; J2175; J2270; J2405; J2710